=== PATIENT | female | born 1985 | race Caucasian/White ===

== ENCOUNTER 2019-05-29 10:50 | Emergency (ER) | payer BC, OTHER ==
--- NOTE | 2019-05-29 15:49 | ER ---
Nurse's Notes [facility] Name: Joycelyn Thorpe Age: 34 yrs Sex: Female : 1985 Arrival Date: 05/29/2019 Time: 10:51 Bed External Waiting Private MD: Diagnosis: Superficial injury of head;Concussion without loss of consciousness Presentation: 05/29 11:04 Presenting complaint: Patient states: I fell on Wednesday trying to climb over a rail and la1 hit the back of my head. Since then I have been having difficulty with reading and writing and while I was at work today my head kept falling. Pt denies LOC, denies N/V. Transition of care: patient was not received from another setting of care. Onset of symptoms was May 29, 2019. Risk Assessment: Do you want to hurt yourself or someone else? Patient reports no desire to harm self or others. Initial Sepsis Screen: Does the patient meet any 2 criteria? No. Patient's initial sepsis screen is negative. Does the patient have a suspected source of infection? No. Patient's initial sepsis screen is negative. Care prior to arrival: None. 11:04 Method Of Arrival: Ambulatory la1 11:04 Acuity: WILLIAM 4 la1 Triage Assessment: 12:15 General: Behavior is calm. iw 12:20 General: Appears. iw - Immunization history:: Adult Immunizations unknown. - Family history:: not pertinent. - Social history:: Smoking status: . - Ebola Screening: : Patient negative for fever greater than or equal to 101.5 degrees Fahrenheit, and additional compatible Ebola Virus Disease symptoms Patient denies exposure to infectious person Patient denies travel to an Ebola-affected area in the 21 days before illness onset No symptoms or risks identified at this time. - Hospitalizations: : No recent hospitalization is reported. Screenin:40 Nutritional screening: No deficits noted. Fall Risk None identified. iw 14:00 Abuse screen: Denies threats or abuse. Denies injuries from another. Tuberculosis iw screening: No symptoms or risk factors identified. Assessment: 11:50 General: Appears in no apparent distress. Behavior is calm, cooperative. Pain: iw Complains of pain in head. Neuro: Level of Consciousness is awake, alert, obeys commands, Oriented to person, place, time, situation, Moves all extremities. Full function. Cardiovascular: Patient's skin is warm and dry. Respiratory: Respiratory effort is even, unlabored, Respiratory pattern is regular, symmetrical. Derm: Skin is intact, is healthy with good turgor. Musculoskeletal: Range of motion: intact in all extremities. Vital Signs: 11:05 BP 120 / 80; Pulse 74; Resp 16; Temp 98.4; Pulse Ox 100% on R/A; la1 [place] Coma Score: 12:15 Eye Response: spontaneous(4). Verbal Response: oriented(5). Motor Response: obeys rn commands(6). Total: 15. 12:15 Eye Response: spontaneous(4). Verbal Response: oriented(5). Motor Response: obeys rn commands(6). Total: 15. ED Course: 10:51 Patient arrived in ED. as 11:05 Triage completed. la1 11:05 Arm band placed on left wrist. la1 11:35 Geovanni Milton MD is Attending Physician. rn 12:00 Patient has correct armband on for positive identification. iw 12:20 No provider procedures requiring assistance completed. Patient did not have IV access iw during this emergency room visit. 12:40 Luz Hoyos, RN is Primary Nurse. iw Administered Medications: No medications were administered Outcome: 12:19 Discharge ordered by . rn 12:40 Discharged to home ambulatory. iw 12:40 Condition: good 12:40 Discharge instructions given to patient, Instructed on discharge instructions, follow up and referral plans. Demonstrated understanding of instructions, follow-up care. 15:47 Patient left the ED. iw Signatures: Sophie Dolan as Luz Hoyos, RN ARIK iw Geovanni Milton MD MD rn Attema, Lee, RN RN la1
--- NOTE | 2019-05-29 15:49 | EDPHYS ---
Physician Documentation [facility] Name: Joycelyn Thorpe Age: 34 yrs Sex: Female : 1985 Arrival Date: 05/29/2019 Time: 10:51 Bed External Waiting Private MD: ED Physician Geovanni Milton HPI: 05/29 12:15 This 34 yrs old Female presents to ER via Ambulatory with complaints of head rn injury. 12:15 The patient or guardian reports injury. The complaints affect the back of head. Onset: rn The symptoms/episode began/occurred 3 day(s) ago. Associated signs and symptoms: Loss of consciousness: This patient did not experience any loss of consciousness. Pertinent positives: dazed, headache, Pertinent negatives: the patient has not experienced a loss of conciousness, patient denies any alcohol consumption, incontinence, seizure, shortness of breath, vomiting, weakness in extremities, generalized weakness. Severity of symptoms: At their worst the symptoms were mild, in the emergency department the symptoms are unchanged. The patient has not experienced similar symptoms in the past. Reports fell trying to climb over short fence, 3 days ago, hit back of head, no LOC, no seizure, no vomiting, no focal neuro problem. Reports felt fine and normal, but today felt dazed and sleepy so came for eval. . - Immunization history:: Adult Immunizations unknown. - Family history:: not pertinent. - Social history:: Smoking status: . - Ebola Screening: : Patient negative for fever greater than or equal to 101.5 degrees Fahrenheit, and additional compatible Ebola Virus Disease symptoms Patient denies exposure to infectious person Patient denies travel to an Ebola-affected area in the 21 days before illness onset No symptoms or risks identified at this time. - Hospitalizations: : No recent hospitalization is reported. ROS: 12:15 Constitutional: Negative for fever, chills, and weight loss, Eyes: Negative for injury, rn pain, redness, and discharge, Neck: Negative for injury, pain, and swelling, Cardiovascular: Negative for chest pain, palpitations, and edema, Respiratory: Negative for shortness of breath, cough, wheezing, and pleuritic chest pain, Abdomen/GI: Negative for abdominal pain, nausea, vomiting, diarrhea, and constipation, MS/Extremity: Negative for injury and deformity, Skin: Negative for injury, rash, and discoloration, Neuro: Negative for numbness, tingling, and seizure. Exam: 12:15 Constitutional: This is a well developed, well nourished patient who is awake, alert, rn and in no acute distress. Ambulatory without difficulty or assistance Head/Face: Normocephalic, atraumatic. Eyes: Pupils equal round and reactive to light, extra-ocular motions intact. Lids and lashes normal. Conjunctiva and sclera are non-icteric and not injected. Cornea within normal limits. Periorbital areas with no swelling, redness, or edema. ENT: no oral trauma Neck: Trachea midline, no thyromegaly or masses palpated, and no cervical lymphadenopathy. Supple, full range of motion without nuchal rigidity, or vertebral point tenderness. No Meningismus. Cardiovascular: Regular rate and rhythm. No pulse deficits. Respiratory: No increased work of breathing, no retractions or nasal flaring. Speaking full sentences Abdomen/GI: soft, non-tender Back: No spinal tenderness. No costovertebral tenderness. Full range of motion. MS/ Extremity: Pulses equal, no cyanosis. Neurovascular intact. Full, normal range of motion. Equal circumference. Neuro: Awake and alert, GCS 15, oriented to person, place, time, and situation. Cranial nerves II-XII grossly intact. Motor strength 5/5 in all extremities. Sensory grossly intact. Cerebellar exam normal. Normal gait. Vital Signs: 11:05 BP 120 / 80; Pulse 74; Resp 16; Temp 98.4; Pulse Ox 100% on R/A; la1 [place] Coma Score: 12:15 Eye Response: spontaneous(4). Verbal Response: oriented(5). Motor Response: obeys rn commands(6). Total: 15. 12:15 Eye Response: spontaneous(4). Verbal Response: oriented(5). Motor Response: obeys rn commands(6). Total: 15. MDM: 11:35 Patient medically screened. rn 12:15 Differential diagnosis: Contusion of Intracranial bleed- Concussion cerebral contusion. rn Data reviewed: vital signs, nurses notes, radiologic studies, CT scan, and as a result, I will discharge patient. Counseling: I had a detailed discussion with the patient and/or guardian regarding: the historical points, exam findings, and any diagnostic results supporting the discharge/admit diagnosis, radiology results, the need for outpatient follow up, to return to the emergency department if symptoms worsen or persist or if there are any questions or concerns that arise at home. Special discussion: Based on the patient's history, exam and DX evaluation, there is no indication for emergent intervention or inpatient TX. It is understood by the patient/guardian that if the SXs persist or worsen they need to return immediately for re-evaluation. I discussed with the patient/guardian in detail that at this point there is no indication for admission to the hospital. It is understood, however, that if the symptoms persist or worsen the patient needs to return immediately for re-evaluation. ED course: CT head without acute finding. NOrmal neuro exam. Will dc home with pcp f/u. Return precautions given and understood.. Administered Medications: No medications were administered Disposition: 05/29/19 12:19 Discharged to Home. Impression: Superficial injury of head, Concussion without loss of consciousness. - Condition is Stable. - Discharge Instructions: Head Injury, Adult. - Medication Reconciliation Form, Thank You Letter, Antibiotic Education, Prescription Opioid Use form. - Follow up: Private Physician; When: As needed; Reason: Recheck today's complaints, Re-evaluation by your physician. - Problem is new. - Symptoms have improved. Signatures: Luz Hoyos RN RN iw Geovanni Milton MD MD journeyman pressman: (The following items were deleted from the chart) 12:18 12:15 Constitutional: This is a well developed, well nourished patient who is awake, rn alert, and in no acute distress. Ambulatory without difficulty or assistance Head/Face: Normocephalic, atraumatic. Eyes: Pupils equal round and reactive to light, extra-ocular motions intact. Lids and lashes normal. Conjunctiva and sclera are non-icteric and not injected. Cornea within normal limits. Periorbital areas with no swelling, redness, or edema. ENT: no oral trauma Neck: Trachea midline, no thyromegaly or masses palpated, and no cervical lymphadenopathy. Supple, full range of motion without nuchal rigidity, or vertebral point tenderness. No Meningismus. Cardiovascular: Regular rate and rhythm. No pulse deficits. Respiratory: No increased work of breathing, no retractions or nasal flaring. Speaking full sentences Abdomen/GI: soft, non-tender MS/ Extremity: Pulses equal, no cyanosis. Neurovascular intact. Full, normal range of motion. Equal circumference. Neuro: Awake and alert, GCS 15, oriented to person, place, time, and situation. Cranial nerves II-XII grossly intact. Motor strength 5/5 in all extremities. Sensory grossly intact. Cerebellar exam normal. Normal gait. rn 15:47 12:19 05/29/2019 12:19 Discharged to Home. Impression: Superficial injury of head; iw Concussion without loss of consciousness. Condition is Stable. Forms are Medication Reconciliation Form, Thank You Letter, Antibiotic Education, Prescription Opioid Use. Follow up: Private Physician; When: As needed; Reason: Recheck today's complaints, Re-evaluation by your physician. Problem is new. Symptoms have improved. rn
[2019-05-29 17:41] VITALS: BP 120/80; TEMP 98.4; O2SAT 100
--- NOTE | 2019-05-30 12:14 | RAD REPORT ---
EXAM DESCRIPTION: CT HEAD/BRAIN W/O CONTRAST CLINICAL HISTORY: Fall, head injury. COMPARISON: None. TECHNIQUE: Axial computed tomography of the head/brain without intravenous contrast. Sagittal and coronal reformatted images were created and reviewed. This exam was performed according to our departmental dose-optimization program, which includes automated exposure control, adjustment of the mA and/or kV according to patient size and/or use of iterative reconstruction technique. FINDINGS: No acute hemorrhage, hydrocephalus or midline shift is evident. The paranasal sinuses and mastoids are clear. No areas of brain edema. The calvarium is intact. IMPRESSION: No acute intracranial abnormality is detected.
== END 2019-05-29 15:47 | disposition home or self-care (01) ==
LOC: ER 10:50
DX: S06.0X0A Concussion without loss of consciousness, initial encounter (principal); S00.90XA Unspecified superficial injury of unspecified part of head, initial encounter; W18.30XA Fall on same level, unspecified, initial encounter
CPT/HCPCS: 70450; 99281